=== PATIENT | female | born 1985 | race American Indian/Alaskan Native ===

== ENCOUNTER 2019-01-10 00:41 | Emergency (ER) | payer OTHER ==
[2019-01-10 00:56] VITALS: BP 144/100
[2019-01-10 01:40] LABS: Hematocrit 39.3 % (30.3-42.9); Hemoglobin 12.3 gm/dl (10.1-14.3); Mean Corpuscular HGB Conc 31 % (30-34); Mean Corpuscular Volume 75 fl (79-97); Platelet Count 381 K/mm3 (140-440); Red Blood Count 5.21 M/mm3 (3.65-5.03); Red Cell Distribution Width 14.9 % (13.2-15.2)
[2019-01-10 02:00] LABS: BUN/Creatinine Ratio 22; Blood Urea Nitrogen 13 mg/dL (7-17); Hemolysis Index 15
== END 2019-01-10 02:30 | disposition left against medical advice (07) ==
LOC: ED 00:41
DX: R53.1 Weakness (principal); Z53.21 Procedure and treatment not carried out due to patient leaving prior to being seen by health care provider
CPT/HCPCS: 36415; 80048; 84703; 85027

== ENCOUNTER 2019-08-15 14:50 | Outpatient (CLI) | payer OTHER ==
[2019-08-15] MEDS ORDERED: LACTATED RINGERS 500 ML IV ONE (16:01)
[2019-08-15] MEDS ORDERED: ONDANSETRON 4 MG/2 ML INJ IV ONE (16:02)
[2019-08-15 16:54] LABS: Alanine Aminotransferase 16 units/L (7-56); Albumin 3.6 g/dL (3.9-5); BUN/Creatinine Ratio 12; Basophils % (Auto) 0.3 % (0.0-1.8); Blood Urea Nitrogen 6 mg/dL (7-17); Calcium 9.3 mg/dL (8.4-10.2); Eosinophils # (Auto) 0.2 K/mm3 (0.0-0.4); Eosinophils % (Auto) 2.3 % (0.0-4.3); Hematocrit 31.2 % (30.3-42.9); Hemoglobin 10.1 gm/dl (10.1-14.3); Hemolysis Index 1; Lymphocytes # (Auto) 1.4 K/mm3 (1.2-5.4); Lymphocytes % (Auto) 14.7 % (13.4-35.0); Mean Corpuscular HGB Conc 32 % (30-34); Mean Corpuscular Volume 75 fl (79-97); Monocytes # (Auto) 0.8 K/mm3 (0.0-0.8); Monocytes % (Auto) 8.6 % (0.0-7.3); Platelet Count 235 K/mm3 (140-440); Red Blood Count 4.18 M/mm3 (3.65-5.03); Red Cell Distribution Width 16.3 % (13.2-15.2)
[2019-08-15 19:27] LABS: Bacteria,Urine 2+ /HPF (Negative); Bilirubin,Urine NEG (Negative); Blood,Urine SM (Negative); Color,Urine Yellow (Yellow); Mucus,Urine FEW /HPF
[2019-08-15 20:06] VITALS: BP 125/76
== END 2019-08-15 20:30 | disposition home or self-care (01) ==
LOC: TRG 14:50 → APU 14:52 → TRG 20:30
PROVIDERS: ATTEND Obstetrics & Gynecology
DX: O62.9 Abnormality of forces of labor, unspecified (principal); O26.893 Other specified pregnancy related conditions, third trimester; R11.0 Nausea; O47.03 False labor before 37 completed weeks of gestation, third trimester; O99.343 Other mental disorders complicating pregnancy, third trimester; F41.9 Anxiety disorder, unspecified; Z3A.32 32 weeks gestation of pregnancy
CPT/HCPCS: 36415; 59025; 80053; 81001; 85025; 93005; 96374; J2405; J7120; 96360; 96365

== ENCOUNTER 2019-12-12 06:10 | Day surgery (SDC) | payer OTHER ==
--- NOTE | 2019-12-08 13:47 | History and Physical Report ---
History of Present Illness Date of examination: 12/08/19 Date of admission: 12/12/2019 Chief complaint: here for tubal ligation History of present illness: Visit Type: Pre-Op History of Present Illness: Pt presents for pre-op visit...tward Pt presents with face mask..Patient denies fever, cough, shortness of breath and exposure to COVID-19. Pt present for pre op visit for BTL with felshi clip placement. All risk/benefits/alternatives were d/w pt and questions were addressed and answered. Consents signed and placed on the chart. Vital Signs: Patient Profile: 34 Years Old Female LMP: 11/21/2019 Height: 66 inches Weight: 164 pounds BMI: 26.47 BP sittin / 60 (left arm) Pt. in pain? no Menstrual History: LMP (date): 11/21/2019 Current Method of Contraception: None Past History : 5 Term Births: 3 Premature Births: 0 Living Children: 3 Para: 3 Mult. Births: 0 Prev : 0 Aborta: 2 Elect. Ab: 1 Spont. Ab: 1 Ectopics: 0 # 1 Delivery date: 2008 Weeks Gestation: 20 Delivery type: EAB # 2 Delivery date: 2012 Weeks Gestation: 6 Delivery type: SAB # 3 Delivery date: 08/05/2014 Weeks Gestation: 39 Delivery type: Anesthesia type: epidural Delivery location: [place] Infant Sex: Male weight: 7# 3oz Name: Junior Comments: GDM # 4 Delivery date: 06/19/2016 Weeks Gestation: 39 Delivery type: Delivery location: [place] Sex: Male weight: 6# Name: Nasiah # 5 Delivery date: 10/07/2019 Weeks Gestation: 40 Delivery type: Vaginal Anesthesia type: epidural Delivery location: [facility] Sex: female weight: 7 Name: Aldair Comments: gestational diabetes; +GBS; Meconium [employer] History Uterine Surgery (not C/S): negative Operations: Hernia repair @ 8yrs Ovarian Cyst removal 05/2018 Abnormal PAP: positive, 10 yrs ago- place and date unknown Uterine Anomaly: negative ELIANE Exposure: negative Infertility: negative Infection History HIV Risk Eval: low risk TB exposure: no Personal hx. of genital herpes: no Partner hx. of genital herpes: no Hx of STD: none Other: Current URI with sore throat x 4 days Active Medications (reviewed today): ZOLOFT 50 MG ORAL TABLET (SERTRALINE HCL) 1 po in the morning Current Allergies (reviewed today): * AMOXICILIIN (Critical) * PENICILLIN (Critical) Past Medical History: Reviewed history from 02/25/2019 and no changes required: Elevated BP- not diagnosed as HTN but CHC stopped (2018) GDM- 2014 Past Surgical History: Reviewed history from 02/25/2019 and no changes required: Hernia repair @ 8yrs Ovarian Cyst removal 05/2018 Family History Summary: Reviewed history and no changes required: 12/08/2019 General Comments - FH: Cancer- mother (58) Breast stage IV, MGM breast (), P Uncle- eye, P aunt- thyroid DM- P uncle, P aunt Social History: Reviewed history from 02/25/2019 and no changes required: Single, party plan sales consultant shop technician, no pets, no ETOH/Tobacco/Drugs, lives in home with children Risk Factors: Smoked Tobacco Use: Never smoker Smokeless Tobacco Use: Never Passive smoke exposure: no Drug use: no Alcohol use: no Review of Systems General Denies fever, chills, sweats, anorexia, fatigue, weakness, malaise, weight loss and sleep disorder. Denies nausea, vomiting, headache, swelling of legs, abdominal pain, vaginal discharge, vaginal bleeding and contractions. Denies vaginal discharge, incontinence, dysuria, hematuria, urinary frequency, amenorrhea, menorrhagia, abnormal vaginal bleeding, pelvic pain, genital sores, decreased libido, painful periods, painful sex, urinary urgency, hot flashes, vaginal dryness, vaginal itching and vaginal odor. CV Denies chest pains, palpitations, syncope, dyspnea on exertion, orthopnea, PND and peripheral edema. Resp Denies cough, dyspnea at rest, excessive sputum, hemoptysis, wheezing and pleurisy. GI Denies nausea, vomiting, diarrhea, constipation, change in bowel habits, abdominal pain, melena, hematochezia, jaundice, gas/bloating, indigestion/heartburn, dysphagia and odynophagia. Endo Denies cold intolerance, heat intolerance, polydipsia, polyphagia, polyuria and unusual weight change. Breast Denies left breast lump, right breast lump, nipple discharge, bloody discharge from nipple, breast pain, abnormal mammogram and breast enlargement. MS Denies back pain, joint pain, joint swelling, muscle cramps, muscle weakness, stiffness, arthritis, sciatica, restless legs, leg pain at night and leg pain with exertion. Derm Denies rash, itching, dryness and suspicious lesions. Neuro Denies paralysis, paresthesias, headache, seizures, tremors, vertigo, transient blindness, frequent falls, frequent headaches and difficulty walking. Psych Denies depression, anxiety, irritability and mood swings. Eyes Denies blurring, diplopia, irritation, discharge, vision loss, eye pain and photophobia. ENT Denies earache, ear discharge, tinnitus, decreased hearing, nasal congestion, nosebleeds, sore throat and hoarseness. Allergy Denies urticaria, allergic rash, hay fever and recurrent infections. Heme Denies abnormal bruising, bleeding and enlarged lymph nodes. [Labs In-House] Physical Exam Appearance: well developed, well nourished, no acute distress Other Exams Breast exam: no masses or nipple discharge Heart: S1, S2, no murmur, rub, or gallop Abdomen: soft, non-tender, no masses, bowel sounds normal Skin: no ulcers, xanthomas Extremities: normal alignment, no joint enlargement, crepitus, masses or tenderness; normal tone and strength Genitourinary Exam Comments: deferred until EUA Past History Past Medical History: other (see hpi) Past Surgical History: other (see hpi) [employer] History: other (see hpi) Family/Genetic History: other (see hpi) - Obstetrical History : 5 Medications and Allergies Allergies Allergy/AdvReac Type Severity Reaction Status Date / Time amoxicillin Allergy Rash Verified 12/05/19 08:35 Penicillins Allergy Rash Verified 12/05/19 08:35 Home Medications Medication Instructions Recorded Confirmed Last Taken Type Sertraline [Zoloft] 50 mg PO DAILY 12/05/19 12/05/19 Unknown History Active Meds: Active Medications Clindamycin HCl (Cleocin 900 Mg/50 Ml) 900 mg in 50 mls @ 100 mls/hr IV PREOP ONE; Protocol Stop: 12/12/19 06:29 - Physical Exam Cardiovascular: Normal S1, Normal S2 Lungs: Positive: Clear to auscultation, Normal air movement Abdomen: Positive: normal appearance, soft. Negative: distention, tenderness, guarding Genitourinary (Female): Positive: other (deferred) Results All other labs normal. Assessment and Plan - Patient Problems (1) Encounter for sterilization Status: Acute Plan to address problem: -all risk, benefits and alternatives have been d/w pt consents are signed and placed on the chart -to OR for above stated procedure
[~2019-12-12 06:10] MED LIST: CELECOXIB 200 MG CAP PO NR; GABAPENTIN 300 MG CAP PO NR; LACTATED RINGERS 1,000 ML IV SCH; MIDAZOLAM 2 MG/2 ML INJ IV NR
[2019-12-12] MEDS ORDERED: BUPIVACAINE/PF (0.5%) 5 MG/1 ML 10 ML VIAL INFILTRATI ONE ×2 (07:26→08:19)
--- NOTE | 2019-12-12 07:36 | Anesthesia Day of Surgery ---
Anesthesia Day of Surgery - Day of Surgery Patient Examined: Yes Patient H&P Reviewed: Yes Patient is NPO: Yes
--- NOTE | 2019-12-12 07:36 | Anesthesia Consultation ---
Anesthesia Consult and Med Hx Date of service: 12/12/19 - Airway Anesthetic Teeth Evaluation: Good ROM Head & Neck: Adequate Mental/Hyoid Distance: Adequate Mallampati Class: Class III Intubation Access Assessment: Possibly Difficult - Pulmonary Exam CTA: Yes - Cardiac Exam Cardiac Exam: RRR - Pre-Operative Health Status ASA Pre-Surgery Classification: ASA2 Proposed Anesthetic Plan: General - Pulmonary Hx Smoking: No Hx Respiratory Symptoms: No - Cardiovascular System Hx Hypertension: Yes (occasional HTN, not currently on medications) Hx Heart Attack/AMI: No Hx Percutaneous Transluminal Coronary Angioplasty (PTCA): No Hx Cardia Arrhythmia: No - Central Nervous System CVA: No - Endocrine Hx Renal Disease: No Hx Liver Disease: No Hx Insulin Dependent Diabetes: No Hx Non-Insulin Dependent Diabetes: No Hx Thyroid Disease: No - Other Systems Hx Obesity: No - Additional Comments Anesthesia Medical History Comments: No hx anesthetic complications.
[2019-12-12] MEDS ORDERED: ROCURONIUM 50 MG/5 ML INJ IV ONE (07:41)
[2019-12-12] MEDS ORDERED: GLYCOPYRROLATE 0.4 MG/2 ML INJ ONE (07:41)
[2019-12-12] MEDS ORDERED: LIDOCAINE MPF (2%) 20 MG/1 ML VIAL 5 ML ONE (07:41)
[2019-12-12] MEDS ORDERED: NEOSTIGMINE 10MG/10 ML INJ MDV ONE (07:41)
[2019-12-12] MEDS ORDERED: PHENYLEPHRINE/NS 1,000 MCG/10 ML SYRINGE (OR USE) IV ONE (07:41)
[2019-12-12] MEDS ORDERED: ONDANSETRON 4 MG/2 ML INJ ONE (07:41)
[2019-12-12] MEDS ORDERED: fentaNYL 100 MCG/2 ML INJ ONE ×2 (07:41→08:34)
[2019-12-12] MEDS ORDERED: SUCCINYLCHOLINE CHLORIDE 200 MG/10 ML INJ MDV ONE (07:41)
[2019-12-12] MEDS ORDERED: propofoL 200 MG/20 ML VIAL IV ONE (07:41)
[2019-12-12] MEDS ORDERED: dexAMETHasone 20 MG/5 ML VIAL ONE (07:41)
[2019-12-12] MEDS ORDERED: SUGAMMADEX SODIUM 200 MG/2 ML VIAL IV ONE (08:39)
--- NOTE | 2019-12-12 08:47 | Operative Report ---
Operative Report Operative Report: Date of procedure: 12/12/2019 Pre-operative diagnosis: Desires permanent sterilization Post-operative diagnosis: Same Procedure name(s): Laparoscopic bilateral tubal ligation via placement of Filshie clips Surgeon: Evangelina Suero MD Plastic Cnc Machine Operator: AWA Anesthesia: General endotracheal anesthesia EBL: Minimal Urine output: 25 cc of clear urine out at the beginning of the procedure Fluids: 500 cc Findings: Grossly normal fallopian tubes and ovaries bilaterally normal uterus. Indications: Patient desires sterilizon. All risks benefits and alternatives were discussed with the patient. Given the risks patient desired[]. Consents were signed and placed on the chart. Procedure: Patient was taken to the operating room and which she was placed under general endotracheal anesthesia. Patient was then prepped and draped in sterile fashion and placed in dorsal lithotomy position in Laci stirrups. Attention was then turned to the vagina in which a Humi uterine manipulator was placed. Patient underwent straight catheterization. Attention was then turned to the umbilicus and which an infraumbilical incision was made with the scalpel 5mm trocar was placed using direct visualization with the camera. Abdomen was then insufflated with gas. Under direct visualization a 5 mm and 8 mm trocar we re placed. Attention was turned to the right fallopian tube in which the Filshie clip was applied via the Filshie clip package yarns drying machine operator encompassing the entire tube. This was repeated on the left side. After tubal ligation was completed all instruments were removed from the abdomen under direct visualization. All gas was also released from the abdomen. The skin was approximated with 4-0 Monocryl in a subcuticular stitch. The patient tolerated procedure well. Sponge, lap, and needle counts were all correct x3 the patient was taken to the recovery room awake and in stable condition.
--- NOTE | 2019-12-12 08:47 | Short Stay Summary ---
Short Stay Documentation Date of service: 12/19/19 - History H&P: dictated - Allergies and Medications Current Medications: Allergies amoxicillin Allergy (Verified 12/05/19 08:35) Rash Penicillins Allergy (Verified 12/05/19 08:35) Rash Home Medications Medication Instructions Recorded Confirmed Last Taken Type RX: Sertraline [Zoloft] 50 mg PO DAILY 12/05/19 12/12/19 12/10/19 08:00 History Active Medications Celecoxib (Celebrex) 200 mg PO PREOP NR Stop: 12/12/19 23:59 Last Admin: 12/12/19 07:20 Dose: 200 mg Documented by: Gabapentin (Gabapentin) 600 mg PO PREOP NR Stop: 12/12/19 23:59 Last Admin: 12/12/19 07:20 Dose: 600 mg Documented by: Clindamycin HCl (Cleocin 900 Mg/50 Ml) 900 mg in 50 mls @ 100 mls/hr IV PREOP NR; Protocol Stop: 12/12/19 23:59 Lactated Ringer's (Lactated Ringers) 1,000 mls @ 100 mls/hr IV DIRECT ESTHER Stop: 12/12/19 23:59 Last Admin: 12/12/19 07:30 Dose: 100 mls/hr Documented by: Midazolam HCl (Versed) 2 mg IV PREOP NR Stop: 12/12/19 23:59 - Brief post op/procedure progress note Date of procedure: 12/12/19 Pre-op diagnosis: Encounter for sterilization Post-op diagnosis: same Procedure: Bilateral tubal ligation with placement of Filshie clips Anesthesia: GETA Findings: See operative report Surgeon: SUZY DUQUE Estimated blood loss: minimal Pathology: none Condition: stable - Hospital course Hospital course: Patient was admitted for above-stated procedure. Patient underwent above-stated procedure that was not complicated. Patient will be discharged home once recovery is complete in PACU and discharge criteria has been met. Patient will follow-up in the office in 1 week for postoperative evaluation. - Disposition Condition at discharge: Good Disposition: DC-01 TO HOME OR SELFCARE - Discharge Diagnoses (1) Encounter for sterilization Status: Acute Short Stay Discharge Plan Follow up with: PRIMARY CARE,MD [Primary Care Provider] - 7 Days Prescriptions: Ibuprofen [Motrin 800 MG tab] 800 mg PO Q8HR PRN #30 tablet PRN Reason: Pain, Moderate (4-6) oxyCODONE /ACETAMINOPHEN [Percocet 5/325] 1 tab PO Q4HR #30 tab
[2019-12-12] MEDS ORDERED: oxyCODONE /ACETAMINOPHEN 5-325MG TAB PO SCH (09:30)
[2019-12-12 12:44] VITALS: BP 152/91
--- NOTE | 2019-12-12 13:35 | Post Anesthesia Evaluation ---
- Post Anesthesia Evaluation Patient Participated: Yes Airway Patent: Yes Stable Respiratory Function: Yes Nausea/Vomiting: No Temp > 96.8F: Yes Pain Manageable: Yes Adequeate Hydration: Yes Anesthesia Complications: No
== END 2019-12-12 06:11 | disposition home or self-care (01) ==
LOC: OR 06:10
PROVIDERS: ATTEND Obstetrics & Gynecology
DX: Z30.2 Encounter for sterilization (principal); G43.909 Migraine, unspecified, not intractable, without status migrainosus; I10 Essential (primary) hypertension; F32.9 Major depressive disorder, single episode, unspecified; Z88.6 Allergy status to analgesic agent; Z88.0 Allergy status to penicillin; Z79.899 Other long term (current) drug therapy; Z83.3 Family history of diabetes mellitus; Z80.8 Family history of malignant neoplasm of other organs or systems; Z82.49 Family history of ischemic heart disease and other diseases of the circulatory system
CPT/HCPCS: 36415; 58671; 84703; J0330; J1100; J2370; J2405; J2704; J2710; J3010; J7120